=== PATIENT | female | born 1940 | race Caucasian/White ===

== ENCOUNTER 2017-12-23 11:25 | Emergency (ER) | payer MEDICARE, OTHER ==
[~2017-12-23] VITALS: Ht 160 cm; Wt 77.6 kg
[~2017-12-23 11:25] MED LIST: ASPIR 8181 M1 PO; CARTIA XT240 M1 PO; GABAPENTIN 100100 MG PO; IRON 100 PLUS1 EACH PO; LEVOTHYROXINE 0.15MG PO; LIPITOR 20 MG T20 M1 PO; RELAFEN PO; TRAMADOL 50 MG50 MG PO
[2017-12-23 12:56] VITALS: BP 130/79
== END 2017-12-23 12:56 | disposition home or self-care (01) ==
LOC: M.ERS 11:25
DX: S22.31XA Fracture of one rib, right side, initial encounter for closed fracture (principal); I10 Essential (primary) hypertension; Z96.651 Presence of right artificial knee joint; Z90.710 Acquired absence of both cervix and uterus; Z88.2 Allergy status to sulfonamides; W01.0XXA Fall on same level from slipping, tripping and stumbling without subsequent striking against object, initial encounter; Y93.K1 Activity, walking an animal; Y92.89 Other specified places as the place of occurrence of the external cause; Y99.8 Other external cause status

== ENCOUNTER 2019-06-14 09:50 | Observation (INO) | payer MEDICARE, OTHER ==
[~2019-06-14] VITALS: Ht 160 cm; Wt 80.7 kg
[2019-06-14 10:08] VITALS: BP 139/52
[2019-06-14] MEDS ORDERED: LIPITOR 20 MG T20 M1 PO (10:17)
[2019-06-14] MEDS ORDERED: GABAPENTIN 100100 MG PO (10:18)
[2019-06-14] MEDS ORDERED: SYNTHROID137 MC1 PO (10:18)
[2019-06-14] MEDS ORDERED: VISION FORMULA1 EAC1 PO (10:18)
[2019-06-14] MEDS ORDERED: IRON325 PO (10:20)
[2019-06-14 10:52] LABS: ABSOLUTE BASOPHILS 0.3 thou/uL (0.0-0.2); ABSOLUTE EOSINOPHILS 0.5 thou/uL (0.0-0.7); ABSOLUTE LYMPHOCYTES 2.1 thou/uL (0.8-5.3); ABSOLUTE MONOCYTES 0.5 thou/uL (0.0-1.2); ABSOLUTE NEUTROPHILS 3.4 thou/uL (1.6-8.1); BASOPHILS 3.7 %; EOSINOPHILS 6.9 %; HEMATOCRIT 20.7 % (37.0-47.0); LYMPHOCYTES 31.5 %; MCHC 28.2 g/dL (28.0-37.0); MCV 60.4 fL (80.0-100.0); MPV 7.4 fl. (7.2-11.1); NUCLEATED RBCS 0 /100WBC; PLATELET COUNT* 518 thou/uL (150-400); POLYS 50.9 %; RBC 3.43 mil/uL (4.20-5.00); WBC 6.8 thou/uL (4.0-11.0)
[2019-06-14 10:53] LABS: HEMOGLOBIN 5.8 gm/dL (12.0-15.0)
--- NOTE | 2019-06-14 10:58 | NUR ---
PT C/O OF FEELING FATIGUED FOR THE LAST WEEK AND A HALF. PT WENT TO SEE HER DOCTOR AND HAD BLOOD WORK DRAWN PT WAS CALLED AND TOLD TO COME TO THE ED DUE TO HER LOW HGB. PT HAS NO OTHER C/O AND DENIES ANY RECTAL BLEEDING. PT STATING SEVERAL YEARS AGO SHE HAD THE SAME SYMPTOMS WITH A LOW HGB AND SHE WAS TOLD SHE HAD A PEPTIC ULCER BLEED. PT HAS NO OTHER C/O.
[2019-06-14 11:00] LABS: ANION GAP 7 mmol/L (7-16); BUN 19 mg/dL (7-18); CALCIUM 8.8 mg/dL (8.5-10.1); CHLORIDE 107 mmol/L (98-107); CO2 27 mmol/L (21-32); CREATININE 0.9 mg/dL (0.6-1.3); GLUCOSE 115 mg/dL (70-99); POTASSIUM 4.2 mmol/L (3.5-5.1); SODIUM 141 mmol/L (136-145)
[2019-06-14 11:01] LABS: APTT 21.7 Seconds (25.0-31.3); PROTIME 10.6 Seconds (9.20-11.50)
[2019-06-14 11:09] LABS: ALBUMIN 3.4 g/dL (3.4-5.0); ALKALINE PHOSPHATASE 92 U/L (46-116); SGOT 13 U/L (15-37); SGPT 18 U/L (30-65); TOTAL BILIRUBIN 0.3 mg/dL (<0.1-1.0); TOTAL PROTEIN 6.5 g/dL (6.4-8.2); TROPONIN-I LEVEL <0.06 ng/mL (<0.06)
[2019-06-14 11:47] LABS: HYPOCHROMASIA 2+; MICROCYTES 2+; OVALOCYTES 1+; PLATELET ESTIMATE INCREASED; POLYCHROMASIA Occasional
[2019-06-14 11:55] LABS: ANISOCYTOSIS 2+; POIKILOCYTOSIS 1+
[2019-06-14 13:25] LABS: % SATURATION 3 % (20-39); IRON 12 ug/dL (50-175)
[2019-06-14] MEDS ORDERED: COLACE100 MG PO (13:53)
[2019-06-14 14:26] LABS: HEMATOCRIT 21.2 % (37.0-47.0)
[2019-06-14 14:29] LABS: HEMOGLOBIN 5.9 gm/dL (12.0-15.0)
[2019-06-14 14:39] VITALS: BP 147/63
[2019-06-14 15:00] VITALS: BP 147/63
[2019-06-14 16:01] VITALS: BP 137/62; BP 155/63
[2019-06-14 19:12] LABS: HEMATOCRIT 25.2 % (37.0-47.0); HEMOGLOBIN 7.2 gm/dL (12.0-15.0)
[2019-06-14 19:35] VITALS: BP 147/63
--- NOTE | 2019-06-14 20:08 | NUR ---
PATIENT'S HGB CAME BACK AT 7.2 AND ORDERS WERE TO DC IF >7. VITALS WNL AND IV REMOVED. DC ORDERS EXPLAINED TO PT AND AND VERBALIZED UNDERSTANDING. PT TAKEN VIA W/CHAIR TO HOME AUT[facility] AND DISCHARGED TO HOME.
[2019-06-15 07:11] LABS: HEMOGLOBIN 5.8 g/dL (11.1-15.9)
== END 2019-06-14 20:00 | disposition home or self-care (01) ==
LOC: M.ERS 09:50 → M.TBA-ER 13:18 → M.ORTHSURG 13:18
PROVIDERS: Nurse Practitioner Family; ADMIT Internal Medicine
DX: D50.9 Iron deficiency anemia, unspecified (principal); M19.90 Unspecified osteoarthritis, unspecified site; I10 Essential (primary) hypertension; R53.83 Other fatigue; Z79.899 Other long term (current) drug therapy

== ENCOUNTER 2021-07-28 11:03 | Emergency (ER) | payer MEDICARE, OTHER ==
[~2021-07-28] VITALS: Ht 160 cm; Wt 77.1 kg
[~2021-07-28 11:03] MED LIST changes: +COLACE100 MG PO; +IRON325 PO; +SYNTHROID137 MC1 PO; +VISION FORMULA1 EAC1 PO
--- NOTE | 2021-07-28 11:49 | EKG ---
[place] [address] ELECTROCARDIOGRAM REPORT Name: REED WILDER JB Room: [facility]#: [id number] Admission: 07/28/21 Attend Phys: Discharge: Date of : 44 Date of Service: 07/28/21 1129 Report #: [id number] THIS REPORT FOR: //name// [facility] ED Test Date: 2021-07-28 Test Time: 11:29:47 Pat Name: REED WILDER Department: Room: Gender: [employer] Adviser: [facility] : 1940 Requested By: Cecilia Zhang Order Number: [id number] MD: Antonio Navarro Measurements Intervals [place] Rate: 65 P: 19 OK: 133 QRS: -10 QRSD: 141 T: -6 QT: 436 QTc: 454 Interpretive Statements Sinus rhythm Right bundle branch block Compared to ECG 06/14/2019 10:33:00 No significant changes Electronically Signed On 07-28-2021 11:49:36 CDT by Antonio Navarro [email or web address] <ELECTRONICALLY SIGNED> By: Antonio Navarro MD, [facility] 07/28/21 1149 1129 1129 Antonio Navarro MD, [facility] /EPI
[2021-07-28 11:53] LABS: ABSOLUTE EOSINOPHILS 0.4 thou/uL (0.0-0.7); ABSOLUTE LYMPHOCYTES 2.7 thou/uL (0.8-5.3); ABSOLUTE MONOCYTES 0.6 thou/uL (0.0-1.2); ABSOLUTE NEUTROPHILS 6.5 thou/uL (1.6-8.1); BASOPHILS 0.4 %; EOSINOPHILS 4.3 %; HEMATOCRIT 40.3 % (37.0-47.0); HEMOGLOBIN 13.3 gm/dL (12.0-15.0); LYMPHOCYTES 26.6 %; MCH 29.4 pg (26.0-34.0); MONOCYTES 5.6 %; NUCLEATED RBCS 0 /100WBC; PLATELET COUNT* 306 thou/uL (150-400); POLYS 63.1 %; RBC 4.52 mil/uL (4.20-5.00); RDW-CV 13.4 % (10.5-14.5); WBC 10.2 thou/uL (4.0-11.0)
[2021-07-28 12:03] LABS: CALCIUM 8.5 mg/dL (8.5-10.1); CREATININE 1.2 mg/dL (0.6-1.3); POTASSIUM 3.6 mmol/L (3.5-5.1)
[2021-07-28 12:07] LABS: ALBUMIN 3.4 g/dL (3.4-5.0); TOTAL BILIRUBIN 0.4 mg/dL (<0.1-1.0); TOTAL PROTEIN 6.6 g/dL (6.4-8.2)
[2021-07-28] MEDS ORDERED: DICYCLOMINE HCL20 MG PO (13:54)
[2021-07-28] MEDS ORDERED: ZOFRAN ODT4 MG PO (13:54)
[2021-07-28 14:25] VITALS: BP 141/70
== END 2021-07-28 14:25 | disposition home or self-care (01) ==
LOC: M.ERS 11:03
PROVIDERS: Nurse Practitioner Family
DX: K52.9 Noninfective gastroenteritis and colitis, unspecified (principal); K92.1 Melena; R63.0 Anorexia; I10 Essential (primary) hypertension; Z85.54 Personal history of malignant neoplasm of ureter; Z79.82 Long term (current) use of aspirin; Z96.651 Presence of right artificial knee joint; Z90.711 Acquired absence of uterus with remaining cervical stump; Z85.43 Personal history of malignant neoplasm of ovary; Z85.89 Personal history of malignant neoplasm of other organs and systems; Z79.899 Other long term (current) drug therapy; Z88.2 Allergy status to sulfonamides